=== PATIENT | female | born 1970 | race Caucasian/White ===

== ENCOUNTER → 2018-03-01 | Outpatient (CLI) | payer BC | LOC: MC.RAD 13:54 | DX: Z12.31 Encounter for screening mammogram for malignant neoplasm of breast (principal) ==

== ENCOUNTER → 2020-08-13 | Outpatient (CLI) | payer BC | LOC: MC.RAD 13:22 | DX: Z12.31 Encounter for screening mammogram for malignant neoplasm of breast (principal) ==

== ENCOUNTER 2020-11-12 17:54 | Emergency (ER) | payer BC ==
[~2020-11-12] VITALS: Ht 175.3 cm; Wt 72.7 kg
[2020-11-12 18:09] VITALS: TEMP 98.4
[2020-11-12 18:47] VITALS: BP 105/76; PULSE 70
== END 2020-11-12 18:47 | disposition home or self-care (01) ==
LOC: COL.ER 17:54
DX: T23.232A Burn of second degree of multiple left fingers (nail), not including thumb, initial encounter (principal); Z88.1 Allergy status to other antibiotic agents; X08.8XXA Exposure to other specified smoke, fire and flames, initial encounter

== ENCOUNTER → 2021-07-16 | Outpatient (CLI) | payer BC | LOC: COL.RAD 13:02 | DX: R55 Syncope and collapse (principal) ==

== ENCOUNTER → 2021-09-18 | Outpatient (CLI) | payer BC | LOC: MC.RAD 13:19 | DX: Z12.31 Encounter for screening mammogram for malignant neoplasm of breast (principal) ==

== ENCOUNTER 2021-10-08 09:18 | Outpatient (CLI) | payer BC ==
[~2021-10-08] VITALS: Ht 175.3 cm; Wt 77.4 kg
[2021-10-08] MEDS ORDERED: MAGNESIUM250 M1 PO (09:51)
[2021-10-08] MEDS ORDERED: MULTI VITAMINS1 TAB PO (09:51)
[2021-10-08] MEDS ORDERED: ASPIRIN 81M81 MG/TA2 PO (09:51)
[2021-10-08] MEDS ORDERED: NATURAL IRON65 MG PO (09:51)
[2021-10-08] MEDS ORDERED: LYSINE1000 MG PO (09:52)
[2021-10-08 09:54] VITALS: BP 123/96; PULSE 77; TEMP 97.9
[2021-10-08] MEDS ORDERED: PROAMATINE 5MG T5 MG PO (11:24)
[2021-10-08] MEDS ORDERED: FLORINEF ACETA0.1 MG PO (11:25)
--- NOTE | 2021-10-08 11:30 | NUR ---
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 PT TAKES JUICE AND CRACKERS. REVIEWED DISCHARGE INST. 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 IV D'CD INTACT, PT UP AND DRESSED. DISCHARGED VIA W/C TO CAR AT 1210
== END 2021-10-08 12:10 | disposition home or self-care (01) ==
LOC: COL.CAR 09:18
DX: R55 Syncope and collapse (principal); R42 Dizziness and giddiness; R53.83 Other fatigue; R00.1 Bradycardia, unspecified
CPT/HCPCS: 27886; C1764

== ENCOUNTER → 2024-01-04 | Outpatient (CLI) | payer BC ==
[~2024-01-04] MED LIST: ASPIRIN 81M81 MG/TA2 PO; FLORINEF ACETA0.1 MG PO; LYSINE1000 MG PO; MAGNESIUM250 M1 PO; MULTI VITAMINS1 TAB PO; NATURAL IRON65 MG PO; PROAMATINE 5MG T5 MG PO
== END ==
LOC: MC.RAD 11:15
DX: Z12.31 Encounter for screening mammogram for malignant neoplasm of breast (principal)